=== PATIENT | female | born 1990 | race Caucasian/White ===

== ENCOUNTER 2019-02-12 17:01 | Outpatient (CLI) | payer MEDICAID ==
[2019-02-12 18:14] LABS: APPEARANCE CLEAR (CLEAR); BILIRUBIN NEGATIVE (NEGATIVE); COLOR YELLOW (YELLOW); GLUCOSE NEGATIVE (NEGATIVE); KETONE NEGATIVE (NEGATIVE); NITRITE NEGATIVE (NEGATIVE); PROTEIN NEGATIVE (NEGATIVE); UROBILINOGEN NORMAL (NORMAL)
[2019-02-12 18:18] LABS: RED CELLS - URINE 0-5 /hpf (0-5)
[2019-02-12 18:21] LABS: BACTERIA MANY /hpf (NONE SEEN)
[2019-02-12 18:29] LABS: WHITE CELLS - URINE 0-5 /hpf (0-5)
[2019-02-12 19:45] LABS: APPEARANCE CLEAR (CLEAR); BILIRUBIN NEGATIVE (NEGATIVE); COLOR YELLOW (YELLOW); GLUCOSE NEGATIVE (NEGATIVE); KETONE SMALL mg/dL (NEGATIVE); NITRITE NEGATIVE (NEGATIVE); PROTEIN NEGATIVE (NEGATIVE); UROBILINOGEN NORMAL (NORMAL)
[2019-02-12 19:46] LABS: BACTERIA FEW /hpf (NONE SEEN); WHITE CELLS - URINE OCC /hpf (0-5)
== END 2019-02-13 07:01 | disposition home or self-care (01) ==
LOC: EDBD 17:01 → D.LDO 17:01 → D.LD 23:33 → D.LDO 02-13 07:01
PROVIDERS: ATTEND Obstetrics & Gynecology
DX: O26.899 Other specified pregnancy related conditions, unspecified trimester (principal); Z3A.00 Weeks of gestation of pregnancy not specified